=== PATIENT | female | born 1955 | race Caucasian/White ===

== ENCOUNTER → 2016-09-14 | Outpatient (CLI) | payer MEDICARE, MEDICAID | LOC: MW.CHGS 09:00 | PROVIDERS: ATTEND Surgery | DX: Z86.010 Personal history of colon polyps (principal) | CPT/HCPCS: 99204 ==

== ENCOUNTER 2017-10-03 13:29 | Emergency (ER) | payer MEDICARE, MEDICAID ==
--- NOTE | 2017-10-03 15:01 | EDM.PDOC ---
ED HPI GENERAL MEDICAL PROBLEM - General Chief Complaint: Abdominal Pain Stated Complaint: CRAMPING ALL OVER BODY Time Seen by Provider: 10/03/17 14:16 Source of Information: Reports: Patient History Limitations: Reports: No Limitations - History of Present Illness INITIAL COMMENTS - FREE TEXT/NARRATIVE: Presents reporting "cramping all over my body". The patient states that she has had cramping for a long time but in the last 2 days it has become worse and is accompanied by nausea, diarrhea, poor appetite. She has been walking the floor and crying due to the pain. Her has massaged her legs some with only temporary relief. She took her tramadol, gabapentin and alprazolam without relief. general Pain Score (Numeric/FACES): 9 - Related Data Allergies Allergy/AdvReac Type Severity Reaction Status Date / Time No Known Allergies Allergy Verified 10/03/17 13:58 Home Meds: Home Meds ALPRAZolam [Alprazolam] 1 tab PO TID 10/03/17 [History] Calcium Carbonate [Calcium] 600 mg PO DAILY 10/03/17 [History] Cholecalciferol (Vitamin D3) [D3 Dots] 1,000 unit PO DAILY 10/03/17 [History] Gabapentin [Gralise] 300 mg PO ASDIRECTED PRN 10/03/17 [History] Losartan Potassium [Cozaar] 50 mg PO BID 10/03/17 [History] Omeprazole 20 mg PO DAILY 10/03/17 [History] Spironolactone [Aldactone] 1 tab PO DAILY 10/03/17 [History] Vitamin B Complex & Vit C No.4 [Super B Complex] 150 mg PO DAILY 10/03/17 [ History] traMADol HCl [Ultram] 50 mg PO TID 10/03/17 [History] Past Medical History Gastrointestinal History: Reports: Cirrhosis - Past Surgical History HEENT Surgical History: Reports: Cataract Surgery Female Surgical History: Reports: Other (See Below) Other Female Surgeries/Procedures: "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 ED EXAM, GI/ABD - Physical Exam Exam: See Below Exam Limited By: No Limitations General Appearance: Alert, Mild Distress (due to pain) Ears: Normal External Exam, Normal TMs Nose: Normal Inspection Throat/Mouth: Normal Inspection, Normal Oropharynx Head: Atraumatic, Normocephalic Neck: Normal Inspection Respiratory/Chest: No Respiratory Distress, Lungs Clear, Normal Breath Sounds, No Accessory Muscle Use Cardiovascular: Normal Peripheral Pulses, Regular Rate, Rhythm, No Edema GI/Abdominal Exam: Soft, Other (obese) Neurological: Alert, Oriented, Normal Cognition Psychiatric: Normal Affect, Normal Mood Skin Exam: Warm, Dry, Intact, Normal Color, No Rash Lymphatic: No Adenopathy Course - Vital Signs Last Recorded V/S: Last Vital Signs Temp 36.4 C 10/03/17 14:05 Pulse 86 10/03/17 14:05 Resp 16 10/03/17 14:05 BP 101/73 10/03/17 14:05 Pulse Ox 97 10/03/17 14:05 - Orders/Labs/Meds Orders: Active Orders 24 hr Category Date Time Status EKG Documentation Completion [RC] STAT Care 10/03/17 14:25 Ordered COMPREHENSIVE METABOLIC PN,CMP [CHEM] Stat Lab 10/03/17 14:25 Ordered Departure - Departure Time of Disposition: 16:27 Disposition: Admitted As Inpatient 66 Condition: Good Clinical Impression: Alcohol abuse Pneumonia Qualifiers: Pneumonia type: due to unspecified organism Laterality: bilateral - Discharge Information Referrals: Gallo Burt MD [Primary Care Provider] - - My Orders Last 24 Hours: My Active Orders 10/03/17 14:25 EKG Documentation Completion [RC] STAT COMPREHENSIVE METABOLIC PN,CMP [CHEM] Stat - Assessment/Plan Last 24 Hours: My Active Orders 10/03/17 14:25 EKG Documentation Completion [RC] STAT COMPREHENSIVE METABOLIC PN,CMP [CHEM] Stat
== END 2017-10-03 16:45 | disposition home or self-care (01) ==
LOC: MW.ED 13:29
DX: M62.838 Other muscle spasm (principal); J18.9 Pneumonia, unspecified organism; F10.10 Alcohol abuse, uncomplicated; Z79.899 Other long term (current) drug therapy; F17.210 Nicotine dependence, cigarettes, uncomplicated
CPT/HCPCS: 36415; 80053; 99283; A9270